=== PATIENT | female | born 1935 | race Caucasian/White ===

== ENCOUNTER 2021-01-15 15:28 | Emergency (ER) | payer MEDICARE, OTHER ==
[~2021-01-15 15:28] MED LIST: ARMOUR THYROID15 MG PO; ASPIRIN81 MG PO; CERTAGEN1 EACH PO; CIPRO500 MG PO; CYCLOBENZAPRINE10 MG PO; IBUPROFEN400 MG PO; KRILL OIL 1,001 EAC1 PO; LIPO-FLAVONOID1 EACH PO; MACROBID100 MG PO; NEURONTIN100 MG PO; NORCO 7.5-3251 EACH PO; OS-CAL500 MG PO; PEPCID20 MG PO; PRAVACHOL40 MG PO; PROTONIX40 MG PO; TYLENOL #31 EACH PO; VITAMIN D1000 UNI1 PO
[2021-01-15 16:26] LABS: BASOPHIL 0.7 % (0-2); EOSINOPHIL 1.6 % (0-7); HCT 40.6 % (37.0-47.0); HGB 13.1 g/dl (12.5-16.0); LYMPHOCYTE 20.2 % (15-48); MCH 29.9 pg (25.0-31.0); MCHC 32.3 g/dL (32.0-36.0); MCV 92.7 fL (78.0-100.0); MPV 10.4 fL (6.0-9.5); NEUTROPHIL 70.3 % (41-80); NRBC 0; PLT 218 K/uL (150-400); RBC 4.38 M/uL (4.20-5.40); RDW 13.3 % (11.5-14.0); WBC 5.7 K/uL (4.0-10.5)
[2021-01-15 16:50] LABS: ALBUMIN 3.3 g/dL (3.4-5.0); BILIRUBIN - TOTAL 0.3 mg/dL (0.2-1.0); BUN/CREAT RATIO (CALC) 14.7 RATIO; CREATININE 0.75 mg/dL (0.51-0.95); GLOBULIN (CALCULATION) 3.8 g/dL; POTASSIUM 4.2 mmol/L (3.5-5.1); TOTAL PROTEIN 7.1 g/dL (6.4-8.2)
[2021-01-15 16:53] LABS: BILIRUBIN NEGATIVE (NEGATIVE); BLOOD NEGATIVE Ery/uL (NEGATIVE); CLARITY CLEAR (CLEAR); COLOR YELLOW (YELLOW); GLUCOSE (U) NORMAL (NORMAL); LEUKOCYTES NEGATIVE Leu/uL (NEGATIVE); NITRITE NEGATIVE (NEGATIVE); PROTEIN NEGATIVE (NEGATIVE); SPECIFIC GRAVITY 1.015 (1.001-1.030); UROBILINOGEN 0.2 mg/dL (0.2-1.0); pH 7.5 (5.0-9.0)
== END 2021-01-15 17:24 | disposition home or self-care (01) ==
LOC: FER 15:28
PROVIDERS: Emergency Medicine
DX: R42 Dizziness and giddiness (principal); M81.0 Age-related osteoporosis without current pathological fracture; Z88.0 Allergy status to penicillin; Z79.899 Other long term (current) drug therapy
CPT/HCPCS: 36415; 80053; 81003; 84443; 85025; 99284

== ENCOUNTER 2021-03-16 15:51 | Emergency (ER) | payer MEDICARE, OTHER | END 2021-03-16 19:20 | disposition home or self-care (01) | LOC: FER 15:51 | DX: M54.5 Low back pain (principal); Z90.710 Acquired absence of both cervix and uterus; Z88.0 Allergy status to penicillin; Z87.81 Personal history of (healed) traumatic fracture; Z98.890 Other specified postprocedural states; W19.XXXA Unspecified fall, initial encounter | CPT/HCPCS: 70450; 72125; 72131 ==

== ENCOUNTER 2021-04-26 14:58 | Emergency (ER) | payer MEDICARE, OTHER ==
[2021-04-26 16:08] LABS: BASOPHIL 0.3 % (0-2); EOSINOPHIL 0 % (0-7); HCT 44.9 % (37.0-47.0); HGB 15.2 g/dl (12.5-16.0); LYMPHOCYTE 7.2 % (15-48); MCH 30.4 pg (25.0-31.0); MCHC 33.9 g/dL (32.0-36.0); MCV 89.8 fL (78.0-100.0); MPV 11.2 fL (6.0-9.5); NEUTROPHIL 87.1 % (41-80); NRBC 0; PLT 227 K/uL (150-400); WBC 11.2 K/uL (4.0-10.5)
[2021-04-26 16:18] LABS: ALBUMIN 3.6 g/dL (3.4-5.0); BILIRUBIN - TOTAL 0.8 mg/dL (0.2-1.0); CREATININE 0.59 mg/dL (0.51-0.95); GLOBULIN (CALCULATION) 4.4 g/dL; POTASSIUM 3.7 mmol/L (3.5-5.1)
[2021-04-26 17:00] LABS: BILIRUBIN NEGATIVE (NEGATIVE); BLOOD NEGATIVE Ery/uL (NEGATIVE); CLARITY CLEAR (CLEAR); COLOR YELLOW (YELLOW); GLUCOSE (U) NORMAL (NORMAL); LEUKOCYTES NEGATIVE Leu/uL (NEGATIVE); NITRITE NEGATIVE (NEGATIVE); PROTEIN NEGATIVE (NEGATIVE); UROBILINOGEN 0.2 mg/dL (0.2-1.0); pH 7.5 (5.0-9.0)
== END 2021-04-26 19:30 | disposition other institution (70) ==
LOC: FER 14:58
PROVIDERS: Emergency Medicine
DX: S22.079A Unspecified fracture of T9-T10 vertebra, initial encounter for closed fracture (principal); S22.32XA Fracture of one rib, left side, initial encounter for closed fracture; F03.90 Unspecified dementia, unspecified severity, without behavioral disturbance, psychotic disturbance, mood disturbance, and anxiety; Z20.822 Contact with and (suspected) exposure to COVID-19; W19.XXXA Unspecified fall, initial encounter
CPT/HCPCS: 36415; 71045; 72128; 72131; 72170; 80053; 81003; 82550; 84484; 85025; 93005; J2270; J2405; U0002